=== PATIENT | male | born 1960 | race Caucasian/White ===

== ENCOUNTER 2016-05-29 16:19 | Emergency (ER) | payer OTHER ==
[~2016-05-29] VITALS: Ht 175.3 cm; Wt 86.4 kg
[~2016-05-29 16:19] MED LIST: ASPI81TA82 PO; ATEN-100 PO; DILA100C PO; LISI-360 PO; OMEP20CA5 PO; PERC5TAB12 PO; ROSU20 PO; TAB-TAB PO
[2016-05-29 16:20] VITALS: BP 185/107; PULSE 60; RESP 20; TEMP 98; O2SAT 97
== END 2016-05-29 22:03 | disposition left against medical advice (07) ==
LOC: NED 16:19
DX: R06.02 Shortness of breath (principal); Z53.21 Procedure and treatment not carried out due to patient leaving prior to being seen by health care provider
CPT/HCPCS: 99281

== ENCOUNTER 2016-12-01 10:44 | Day surgery (SDC) | payer OTHER ==
[~2016-12-01] VITALS: Ht 175.3 cm; Wt 83.6 kg
[2016-12-01 11:13] VITALS: BP 170/101; PULSE 76; RESP 16; TEMP 97.4; O2SAT 97
[2016-12-01] MEDS ORDERED: ASPI81CH CHEW (11:26)
[2016-12-01] MEDS ORDERED: OMEP20TA PO (11:26)
[2016-12-01] MEDS ORDERED: ROSU20 PO (11:26)
[2016-12-01] MEDS ORDERED: DILA100C PO (11:26)
[2016-12-01] MEDS ORDERED: ATEN100T7 PO (11:26)
[2016-12-01] MEDS ORDERED: ASPIRIN 81 MG CHEW TAB PO SCH (11:30)
[2016-12-01] MEDS ORDERED: NS 1000P @30 MLS/HR (KVO) IV SCH (11:30)
[2016-12-01 11:33] LABS: AUTOMATED NEUTROPHIL # 2.6 TH/MM3 (1.8-7.7); BASOPHIL % 0.5 % (0.0-2.0); EOSINOPHIL # 0.2 TH/MM3 (0-0.4); EOSINOPHIL % 3.2 % (0.0-4.0); HEMATOCRIT 47.6 % (39.0-51.0); HEMO FLAGS DIFF FINAL; LYMPH % 38.8 % (9.0-44.0); LYMPHOCYTE # 2.1 TH/MM3 (1.0-4.8); MEAN CELL VOLUME 93.1 FL (80.0-100.0); MEAN CORPUSCULAR HEMOGLOBIN 32.3 PG (27.0-34.0); MEAN CORPUSCULAR HGB CONC 34.7 % (32.0-36.0); MONO % 10.1 % (0.0-8.0); NEUT % 47.4 % (16.0-70.0); PLATELET COUNT 200 TH/MM3 (150-450); RED BLOOD COUNT 5.12 MIL/MM3 (4.50-5.90); RED CELL DISTRIBUTION WIDTH 13.3 % (11.6-17.2); WHITE BLOOD COUNT 5.4 TH/MM3 (4.0-11.0)
[2016-12-01 11:56] LABS: POTASSIUM 3.5 MEQ/L (3.5-5.1)
[2016-12-01] MEDS ORDERED: HEPARIN-NS/PF INJ 500 ML ONE (15:26)
[2016-12-01] MEDS ORDERED: MIDAZOLAM HCL 2 MG/2 ML VIAL ONE (15:40)
--- NOTE | 2016-12-01 16:13 | CATHPROC ---
[facility] HIS Report Study Information Study Number Admission Scheduled Start Study Start [id number] Dec 01 2016 10:44AM 12/01/2016 Dec 01 2016 3:05PM [place] Service Cardiac Catheterization Admit Source Facility Department Other [facility] Physician and Clinical Staff Initial Viraj Smith Marble Machine Operatorkevyn Young RN, Juanito Recorder Odessa Montesinos,RT(R) Irineo Guerra RCIS(BS) Procedures Performed Procedure Location (Site) Vessel Name Coronary Angiograms LCA Left Coronary Coronary Angiograms RCA Right Coronary LV Gram-hand inj. LV LV Ventricle Wire insertion Fem Art (right) Femoral Art Wire insertion Fem Vein (right) Femoral Vein Equipment Time Building Custodian Description Size Mfg Part Number Used/Scraped CATHETER, FR5 SWAN GUI 15:36 JUNE GARCIA FR 5 [id number] *[id number] Used MONITOR TRANSDUCER, TRUWAVE [id number] 15:36 JUNE GARCIA * Used W/STOCKCOCK *[id number] 538-420 *[id number] 538-420 *[id number] 538-422 *3829928 538-422 *4502209 538-421 *[id number] 538-421 *[id number] 538-421 *[id number] 15:36 [employer] IND[employer] PACK, CCL CUSTOM * Used *[id number] 15:36 MEDLINE PACER PEN, SKIN DUAL W/ RULER * Used *[id number] 15:36 [employer] MEDICAL SHEATH, FR5.5 PRELUDE 11CM FR 5.5 Used 038ACT# [id number] 15:36 [employer] MEDICAL WIRE, 3MMJ .035 180CM 180CM Used *[id number] 15:36 NAMIC MANIFOLD, 4 PORT * Used *[id number] 15:36 [employer] OMNIPAQUE, 350 MG, 150ML 150ML [id number] Used [id number] 15:36 [employer] MEDICAL BLANKET,WARM AIR CCL * Used *[id number] 15:36 TERUMO MEDICAL SHEATH, FR4 TERUMO (10CM) FR 4 Used *[id number] History: Allergies Allergy Reaction No Known Allergies History: Risk Factors Family History of Hypertension Dyslipidemia Previous CO Previous Heart Failure Premature CAD Yes No No No No Prior Valve Prior PCI Prior CABG Surgery No No No Cerebrovascular Peripheral Artery Chronic Lung On Dialysis Diabetes Disease Disease Disease No Yes No No No History: Stress Tests Stress or Imaging Studies Performed Yes Standard Exercise Stress Test No Stress Echo No Stress Test SPECT Stress Test SPECT Result Stress Test SPECT Ischemia Risk/Extent Yes Positive Intermediate Stress Test CMR No Cardiac CTA Coronary Calcium Score No No History: Other Current Smoker Method Quit Packs a Day Years Used Pack Years No Cigarettes 30 Years Ago 1 4 4 Labs Hgb (g/dl) Hct (%) RBC (MIL/MM3) WBC (l/cumm) Platelets (thousands) 11.60-17.00 35.00-51.00 4.00-5.90 4.00-11.00 150.00-450.00 16.5 42.6 5.1 5.4 200 Glucose (mg/dl) BUN (mg/dl) Creatinine (mg/dl) BUN:Creatinine (1:x) 74.00-106.00 7.00-18.00 0.50-1.30 10.00-20.00 102 13 0.9 14.4 Na (meq/l) K (meq/l) Cl (meq/l) CO2 (mmol/L) 136.00-145.00 3.50-5.10 98.00-107.00 21.00-32.00 143 3.5 106 31 PT (sec) INR (PTT:PT) 9.80-11.60 0.90-1.10 11 1 CPK-MB (ng/ML) 0.50-3.60 Not Drawn Medication Medication Total Dose (Bolus/Oral) Medication Total Dosage/Unit 1% XYLOCAINE 20 mL FENTANYL 12.5 mcg VERSED 1 mg Medications (Bolus/Oral) Medication Time Given Dosage/Unit Administered By Reason 1% XYLOCAINE 12/01/2016 3:40:13 PM 20 mL Viraj Rosa 20 mL 1% XYLOCAINE given in lab by Viraj Rosa in Right Groin via Subcutaneous. FENTANYL 12/01/2016 3:40:29 PM 12.5 mcg Juanito Young RN 12.5 mcg FENTANYL given in lab by Juanito Young RN via Peripheral IV. VERSED 12/01/2016 3:41:36 PM 1 mg Juanito Young RN 1 mg VERSED given in lab by Juanito Young RN via Peripheral IV. Ordered by Viraj Rosa. Medication (Drip) Medication Time Given Dosage/Unit Concentration/Unit Diluent (ml) Solution IV Solutions 12/01/2016 3:25:20 PM 0 mL (IV) 500 NaCl .9 Patient arrived on IV Solutions in Left Antecubital via Peripheral IV. Pump/Drip Flow = 20 ml/hr usin g NaCl .9. Ordered by Viraj Rosa. Initial Case Assessment Cardiovascular HR Rhythm NIBP Chest Pain 76 reg 175/97 0 Edema Present Skin color Skin None Normal Warm Circulatory - Right Pulses Dorsalis Pedis Femoral 3 3 Scale (0,1,2,3,4,d) Circulatory - Left Pulses Dorsalis Pedis Femoral 3 3 Scale (0,1,2,3,4,d) Circulatory - Lower Extremities Color Lower Right Color Lower Left Normal Normal Neurological State Oriented to time-place- Alert Moves all extremities person Respiration - General Respiration Rate SpO2 (%) O2 (lpm) (B/min) 7 98 0 Final Case Assessment Cardiovascular HR Rhythm NIBP Chest Pain 78 reg 164/103 0 Edema Present Skin color Skin None Normal Warm Circulatory - Right Pulses Dorsalis Pedis Femoral 3 3 Scale (0,1,2,3,4,d) Circulatory - Left Pulses Dorsalis Pedis Femoral 3 3 Scale (0,1,2,3,4,d) Circulatory - Lower Extremities Color Lower Right Color Lower Left Normal Normal Neurological State Oriented to time-place- Alert Moves all extremities person Respiration - General Respiration Rate SpO2 (%) (B/min) 9 97 Chronological Log Time Study Chronological Log 15:17:33 Patient arrived via Bed. 15:18:39 Patient Name, D.O.B, / Armband Verified By R.N. 15:19:44 Consent signed by the physician and the patient and verified by the [facility] staff. 15:20:49 Pre-op and post- op instructions given; patient acknowledges understanding of instructions. 15:21:54 Verbal Stimulation=2 Physical Stimulation=2 Airway=2 Respiration=2 TOTAL=8. (0=absent, 1=li mited, 2=present) 15:22:00 Patient has been NPO for More than 6Hrs. 15:23:50 Skin Breakdown-none 15:24:11 Patient Warmer Placed on the Table. 15:25:19 A # 20 IV was noted in the Antecubital (left). Grade = 0 Patient arrived on IV Solutions in Left Antecubital via Peripheral IV. Pump/Drip Flow = 20 ml/h r using NaCl .9. Ordered 15:25:20 by Viraj Rosa. 15:25:21 History and physical on the chart or being dictated. Assessment: Initial Case, HR=76 BPM, Rhythm=reg, TTQL=566/97 mmhg, Chest Pain=0, Edema=None, Co tameka=Normal, Skin = Warm Right Pulses: William Ped=3, Femoral=3 Left Pulses: William Ped=3, Femoral=3 15:25:22 Lower Right Extremities: Color=Normal Lower Left Extremities: Color=Normal Neurological: State=Alert, Ox3, JOLLY Respiration: Resp=7 B/min, SpO2=98 %, O2=0 lpm Vitals capture started with the following parameters, Patient=Adult, Interval=5 min, Initial Pr bdbfve=605 mmHg, 15:25:25 Deflation Rate=5 mmHg 15:25:27 Reference ECG taken 15:25:59 HR=77 bpm, GENR=091/102 mmhg, SpO2=99.0 %, Resp=6 B/min, Pain=0, Gabriel=10, Mccord=2 15:31:02 HR=81 bpm, CRHX=285/105 mmhg, SpO2=98.0 %, Resp=6 B/min, Pain=0, Gabriel=10, Mccord=2 15:34:12 Pressure channel 1 zeroed. 15:36:08 HR=78 bpm, FFAT=223/97 mmhg, SpO2=98.0 %, Resp=20 B/min, Pain=0, Gabriel=10, Mccord=2 15:37:44 MD arrived. 15:37:47 Bilateral groins prepped with 2% chlorhexidine, and with a 3 min. waiting time. Time Out. Correct patient, correct procedure,correct physician, ,power injector not loaded with contrast with surgical 15:39:51 team present. Time Out Concurred by MD, individual staff and RADIO STATION ENGINEER in procedure Time Out #2 - Consents verified, patient in correct position, all results are labled and displa yed, safety precautions 15:39:58 taken. Time Out concurred by MD, individual staff and RADIO STATION ENGINEER in procedure. 15:40:00 Case Start 15:40:05 Verbal Stimulation=2 Physical Stimulation=2 Airway=2 Respiration=2 TOTAL=8. (0=absent, 1=li mited, 2=present) 15:40:13 20 mL 1% XYLOCAINE given in lab by Viraj Rosa in Right Groin via Subcutaneous. 15:40:29 12.5 mcg FENTANYL given in lab by Juanito Young RN via Peripheral IV. 15:41:05 HR=85 bpm, OHLE=849/102 mmhg, SpO2=98.0 %, Resp=9 B/min, Pain=0, Gabriel=10, Mccord=2 15:41:36 1 mg VERSED given in lab by Juanito Young RN via Peripheral IV. Ordered by Viraj Rosa. 15:42:20 Access site was Right Femoral Artery. 15:42:25 A wire was inserted via Fem Art (right). 15:42:36 A SHEATH, FR4 TERUMO (10CM) FR 4 was advanced into the Fem Art (right) using the Percutaneo us technique. 15:42:50 Access site was Right Femoral Vein. 15:42:56 A wire was inserted via Fem Vein (right). 15:43:16 A SHEATH, FR5.5 PRELUDE 11CM FR 5.5 was advanced into the Fem Vein (right) using the Percut aneous technique. 15:43:25 Saturation: Site=Ao (Aorta) , O2=97.1 %, Hgb=16.5 gm/dl, Condition=Condition 1. Used in alexandrea culation. 15:44:08 A CATHETER, FR5 SWAN GUI MONITOR FR 5 was inserted via Fem Vein (right) Recorded Pressure: PCW, HR=71, Condition=Condition 1 15:45:27 (Pulmonary Capillary Wedge) PCW Recorded Pressure: MPA, HR=75, Condition=Condition 1 15:45:49 (Main Pulmonary Artery) MPA 23/02/17 15:46:10 HR=75 bpm, BEJU=723/99 mmhg, SpO2=96.0 %, Resp=6 B/min, Pain=0, Gabriel=10, Mccord=2 15:46:29 Saturation: Site=PA (Pulmonary Artery) , O2=85.4 %, Hgb=16.5 gm/dl, Condition=Condition 1. Used in calculation. Recorded Pressure: RV, HR=74, Condition=Condition 1 15:46:50 (Right Ventricle) RV 31/1/6 Recorded Pressure: RA, HR=76, Condition=Condition 1 15:47:10 (Right Atrium) RA 4 15:48:02 Saturation: Site=RA (Right Atrium) , O2=85.4 %, Hgb=16.5 gm/dl, Condition=Condition 1. Used in calculation. 15:48:56 [place] Gui Catheter Removed A JR 4.0 INFINITI CATHETER FR 4 was advanced over a wire. OMNIPAQUE, 350 MG, 150ML 150ML was us ed for 15:48:58 injections. Recorded Pressure: LV, HR=76, Condition=Condition 1 15:50:40 (Left Ventricle) LV 161/2/14 15:50:51 The LV was manually injected with 8 cc's and visualized. OMNIPAQUE, 350 MG, 150ML 150ML use d. 15:51:07 HR=70 bpm, YETA=663/107 mmhg, SpO2=96.0 %, Resp=10 B/min Recorded Pressure: LV, Ao, HR=71, Condition=Condition 1 15:51:12 (Left Ventricle) LV 171/6/17, (Aorta) Ao 163/88/119 Recorded Pressure: Ao, HR=75, Condition=Condition 1 15:51:36 (Aorta) Ao 169/91/124 15:51:56 The RCA was injected and visualized at various angles. OMNIPAQUE, 350 MG, 150ML 150ML used . 15:53:39 Catheter was removed A JL 4.0 INFINITI CATHETER FR 4 was advanced over a wire. OMNIPAQUE, 350 MG, 150ML 150ML was us ed for 15:54:10 injections. 15:55:22 The LCA was injected and visualized at various angles. OMNIPAQUE, 350 MG, 150ML 150ML used . 15:55:38 Catheter was removed A JL 5.0 INFINITI CATHETER FR 4 was advanced over a wire. OMNIPAQUE, 350 MG, 150ML 150ML was us ed for 15:55:39 injections. 15:56:06 HR=79 bpm, UQDY=308/97 mmhg, SpO2=96.0 %, Resp=9 B/min, Pain=0, Gabriel=10, Mccord=2 15:57:42 The LCA was injected and visualized at various angles. OMNIPAQUE, 350 MG, 150ML 150ML used . 15:58:38 Catheter was removed 16:00:34 Case End 16:01:09 HR=78 bpm, XOGV=745/103 mmhg, SpO2=97.0 %, Resp=8 B/min, Pain=0, Gabriel=10, Mccord=2 Assessment: Final Case, HR=78 BPM, Rhythm=reg, PVZL=922/103 mmhg, Chest Pain=0, Edema=None, Color=Normal, Skin = Warm Right Pulses: William Ped=3, Femoral=3 Left Pulses: William Ped=3, Femoral=3 16:01:44 Lower Right Extremities: Color=Normal Lower Left Extremities: Color=Normal Neurological: State=Alert, Ox3, JOLLY Respiration: Resp=9 B/min, SpO2=97 % 16:02:19 Catheter(s) removed without difficulty 16:02:21 Sheath(s) left in place, will be removed in doc unit 16:02:31 Sterile dressing applied to site 16:02:32 No case complications noted. 16:02:33 Cine recording checked. 16:02:36 Bedside Report will be given. 16:02:42 Contrast Scanned 16:02:46 A Left and Right Heart Cath was performed. End Study - Contrast Media Used In Study Contrast Total Opened (mL) Total Used (mL) Total Wasted (mL) Omnipaque 25 25 0 End Study - Maximum Contrast Load Max Contrast Load (mL) 464.4 End Study - Radiation Exposure Fluoro Time (minutes) 3.7 End Study - Patient Disposition Complications Transferred To No Outpatient Bed
[2016-12-01] MEDS ORDERED: SODIUM CHLORIDE 0.9% FLUSH 10 ML FLUSH PRN (16:15)
[2016-12-01] MEDS ORDERED: MISC INFORMATION XX ONE (16:15)
[2016-12-01] MEDS ORDERED: IOHEXOL 350 MG/ML 50 ML BTL (for Cath Lab) OTHER ONE (16:45)
[2016-12-01] MEDS ORDERED: SODIUM CHLORIDE 0.9% FLUSH 10 ML FLUSH SCH (21:00)
--- NOTE | 2016-12-02 15:53 | EKG ---
Date Performed: 12/01/2016 Time Performed: 11:39:48 PTAGE: 56 years EKG: Sinus rhythm . Left axis deviation rSr'(V1) - probable normal variant Left ventricular hypertrophy Lateral T wave changes are probably due to ventricular hypertrophy Abnormal ECG PREVIOUS TRACING : 05/24/2015 16.46 DOCTOR: Dennis Peterson Interpretating Date/Time 12/02/2016 15:46:54
--- NOTE | 2016-12-03 15:24 | MA ---
cc: [facility] DATE 12/03/16 PROCEDURE PERFORMED 1. Right heart catheterization. 2. Left heart catheterization. 3. Left ventriculography 4. Coronary angiography. INDICATION New onset cardiac symptom of severe dyspnea on exertion, CHF, anginal equivalent, unstable angina, coronary artery disease, moderate size fixed defect in the posterior wall, inferior wall and the septum. EF 52%. History of ASD status post surgical closure, dyspnea. PROCEDURE IN DETAIL The patient brought to the cardiac catheterization laboratory, prepped and draped in the usual sterile fashion. 10 cc of 1% lidocaine was used to locally anesthetize the right common femoral artery; 4-Cambodian sheath subsequently placed in the right common femoral artery, a 5-Cambodian sheath placed in the ___ vein. Right heart catheterization was performed first with the following findings: The pulmonary capillary wedge pressure is 12/9-18, PA pressures 30/10-17. RV pressure 31/1-6. RA pressure 6/6-4. The femoral artery sat on room air 97.1%. The pulmonary artery sat on room air 85.4%. The RA sat on room air 85.4%. Cardiac output by Tanesha 9.3 liters per minute. Cardiac index by Tanesha 4.8 liters per meter squared per minute. SVR 991 dynes. Left heart catheterization was then performed with a 4-Cambodian JR-4 and JL-5 diagnostic catheter with the following findings: The LV pressure is 160/5-8. Ejection fraction is 60%. The right coronary artery is a large dominant vessel. It is probably 5-6 mm in the proximal segment in diameter. There is mild diffuse disease up to 10-20% angiographically. Uip-ja-ujewwz segment has diffuse disease up to 20 to perhaps 30% angiographically. The right PDA has no significant obstructive disease. The right CAROLE is actually larger than the PDA, has mild disease in the proximal segment up to 20% angiographically. Left main coronary artery has no significant disease angiographically. Left circumflex vessel has no significant disease angiographically. First obtuse marginal vessel is a medium-sized vessel with mild diffuse disease in the ostial proximal segment up to 20% angiographically. The second obtuse marginal vessel is a large vessel approaching the apex. No significant disease angiographically. LAD is transapical, has some mild diffuse disease in the proximal segment up to 10-20% angiographically. The first diagonal artery has an ostial 40-50% stenosis followed by a proximal 50-60% stenosis, it is a medium-sized vessel. CONCLUSION 1. Mild to moderate three-vessel coronary artery disease in a right dominant system as detailed above. 2. Normal LV systolic function ejection fraction 60%. 3. Normal right heart cath as detailed above. 4. No evidence of evoe-qo-dmziu shunt by right heart catheterization, saturations as detailed above. 5. No evidence of significant coronary stenosis accounting for the patient's dyspnea. Note, the diagonal vessel may have a significant obstruction, however, the patient has no chest pain. There is no ischemic changes on the nuclear stress test in this distribution and I highly doubt that the vessel is big enough to account for the patient's dyspnea. 6. Recommend medical management of coronary artery disease, cardiac risk factor modification. MD CAITY Drew/TRISTIAN /4:02 PM /2:55 PM
== END 2016-12-01 18:32 | disposition home or self-care (01) ==
LOC: HDOC 10:44 → HDIC 10:44 → HDOC 18:32
PROVIDERS: ATTEND Internal Medicine Interventional Cardiology
DX: I25.110 Atherosclerotic heart disease of native coronary artery with unstable angina pectoris (principal); I50.9 Heart failure, unspecified; R94.31 Abnormal electrocardiogram [ECG] [EKG]; Z01.818 Encounter for other preprocedural examination
CPT/HCPCS: 80048; 85025; 85610; 93005; 93460; C1769; C1893; J1644; J2250; J3010; Q9967